=== PATIENT | female | born 1950 | race Caucasian/White ===

== ENCOUNTER 2023-03-18 07:50 | Inpatient (IN) | payer MEDICARE ==
[2023-03-18] VITALS (8 sets, daily range): BP systolic 90–122; BP diastolic 52–75
[~2023-03-18] VITALS: Ht 162.6 cm; Wt 41.0 kg
[~2023-03-18 07:50] MED LIST: AMLODIPINE BESY10 MG PO; ATIVAN1 MG PO; BIOFLEX TABLET1 EACH PO; CRESTOR40 MG NG; DEXAMETHASONE4 MG PO; ONDANSETRON ODT8 MG PO; PROAIR HFA8.5 GM INH; ZOVIRAX400 MG PO
[2023-03-18] MEDS ORDERED: HYDROCODON-ACE1 EAC8 PO (07:58)
[2023-03-18] MEDS ORDERED: PANTOPRAZOLE SO40 MG PO (07:58)
[2023-03-18] MEDS ORDERED: CLOPIDOGREL75 MG PO (07:58)
[2023-03-18] MEDS ORDERED: METOPROLOL SUCC25 MG PO (07:58)
[2023-03-18] MEDS ORDERED: ATORVASTATIN CA80 MG (07:59)
[2023-03-18] MEDS ORDERED: ISOSORBIDE MONO30 MG PO (07:59)
[2023-03-18 08:09] LABS: BASOPHILS 0.5 % (0-2); EOSINOPHILS 1.9 % (0-6); HEMATOCRIT 28.4 % (35.0-50.0); HEMOGLOBIN 9.7 g/dL (12.0-18.0); LYMPHOCYTES 9.9 % (24-44); MCH 26.9 (27-36); MCHC 34.1 g/dl (30-36); MCV 78.7 fl (81-99); MONOCYTES 6.9 % (0-12); NEUTROPHILS 80.8 % (39-80); PLATELET COUNT 301 K/uL (140-440); RBC 3.61 M/ul (4.3-5.7); RDW 19.8 (10.5-15.0)
[2023-03-18 08:26] LABS: ALBUMIN 2.2 g/dL (3.4-5.0); ALBUMIN/GLOBULIN RATIO 0.71 (1.1-2.4); ANION GAP 12.8 (7-21); BILIRUBIN, TOTAL 0.7 ng/dL (0.2-1.0); BUN/CREATININE RATIO 23.52 (6.0-28.6); CALCIUM 9.2 mg/dL (8.5-10.1); CREATININE, SERUM 0.68 mg/dL (0.55-1.02); MAGNESIUM 1.6 mg/dL (1.8-2.4); POTASSIUM 3.8 mmol/L (3.5-5.1); PROTEIN, TOTAL 5.3 g/dL (6.4-8.2)
[2023-03-18 09:05] LABS: INR 1.09 (0.80-1.30); PARTIAL THROMBOPLASTIN TIME 27.9 Sec (22.9-41.3); PROTIME 13.4 Sec (11.2-14.2)
[2023-03-18] MEDS ORDERED: LIPITOR80 MG PO (12:14)
--- NOTE | 2023-03-18 12:30 | NUR ---
PATIENT ARRIVED VIA STRETCHER WITH ER STAFF AND HER . PATIENT STOOD AND TRANSFERED TO [facility] WITH NO ISSUES. SKIN ASSESSMENT DONE AT THIS TIME WITH ER STAFF. PATIENT NOTED TO HAVE GENERALIZED BRUISING AND A REDDEND COCCYX WITH A SMALL SCAB PRESENT. PATIENT REPORTS SHE HAS HAD WOUNDS ON HER COCCYX IN THE PAST. PATIENT REPORTS MINIMAL APPETITE RECENTLY. PATIENT ALERT AND ORIENTED AND ABLE TO ANSWER ALL QUESTIOS. PATIENT DENIES ANY CHEST/BACK/ABD PAIN. PATIENT REPORT SOME "REFLUX PAIN IN CHEST 3 DAYS PRIOR WITH NO ACID TASTE IN HER MOUTH FROM THE INCIDENT". PATIENTS TROPONIN IS NOTED TO BE ELEVATED AND PATIENT ON A HEPARIN GTT UPON ARRIVAL. VERIFIED GTT WITH ERASTO MELVIN. PATIENT DENIES ANY OTHER NEEDS AT THIS TIME.
[2023-03-18] MEDS ORDERED: MIRTAZAPINE15 MG PO (12:35)
[2023-03-18] MEDS ORDERED: STOOL SOFTENER1 EACH PO (12:36)
[2023-03-18] MEDS ORDERED: BAYER CHEWABLE81 MG PO (14:16)
[2023-03-18] MEDS ORDERED: PROLIA60 MG/1 ML SUB-Q (14:17)
--- NOTE | 2023-03-18 14:17 | NUR ---
MED REC COMPLETE
--- NOTE | 2023-03-18 15:23 | NUR ---
PATIENT RESTING IN BED VISITING ON THE PHONE. PATIENTS LEFT FOR THE DAY BUT WILL BE BACK TOMORROW. PATIENT DENIES ANY NEEDS AT THIS TIME. LABS PLACED FOR PTT.
--- NOTE | 2023-03-18 16:00 | NUR ---
TAR PROCESSING TECHNICIAN AND AT THE BEDSIDE TO COMPLETE IMAGING.
--- NOTE | 2023-03-18 16:30 | NUR ---
REVIEWED HEPARIN BOLUS WITH ERASTO MELVIN AND STAN PHARMACIST. STAFFS WRITTEN PROTOCOL CALLS FOR NSTEMI PRN BOLUS TO BE DOSED WITH USING DOSING BODY WEIGHT. BOLUS WITH DOSING BODY WEIGHT IS 2500UNITS. 2 RN VERIFIED.
--- NOTE | 2023-03-18 17:15 | NUR ---
PATIENTS CURRENTLY AT THE BEDSIDE. DISCUSSED PLAN OF CARE WITH PATIENT ABOUT HER INCREASED HEART RATE. SEE EMAR FOR NEW MEDICATIONS. PATIENT SITTING UP EATING DINNER AT THIS TIME. PROVIDED PATIENT WITH ENSURE DRINK. NO OTHER NEEDS AT THIS TIME.
--- NOTE | 2023-03-18 19:40 | NUR ---
BEDSIDE, TALKED WITH PATIENT AND DISCUSSED HEPARIN DRIP INFUSION, DOSING PROTOCOL WITH SUNDEEP Vasquez RN DAYSHIFT.
--- NOTE | 2023-03-18 20:13 | NUR ---
AT NURSES STATION GAVE ORDER TO ADJUST DIGOXIN DOSING, SEE NEW ORDERS
--- NOTE | 2023-03-18 20:30 | NUR ---
PATIENT UP TO BATHROOM VOIDED 250ML URINE. SHE TOLERATED ACTIVITY WELL, SHE REPORTS NO PAIN, NO ACID REFLUX HEARTBURN, NO NAUSEA. ASSESSMENT COMPLETE.
--- NOTE | 2023-03-18 22:20 | NUR ---
ROUNDING IN CCU FOR UPDATES, HAVE PRINTED OUT CT REPORTS FROM LAST NOVEMBER, THIS RN NOTED PULSATING IN PATIENT ABDOMEN ON ASSESSMENT. 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 SAID IF PATIENT REPORTS ANY ABDOMEN PAIN THEN PLAN FOR CT ORDERS TO FOLLOW.
--- NOTE | 2023-03-18 23:34 | NUR ---
PATIENT RESTING IN BED, RELAXED POSITION IN BED, PATIENT ON FULL TELEMETRY WITH V/S AND OXIMETRY V/S STABLE WITH CONTINUED TACHYCARDIA AVERAGE 100-115/MIN.
[2023-03-19] VITALS (9 sets, daily range): BP systolic 110–136; BP diastolic 59–76
--- NOTE | 2023-03-19 01:17 | NUR ---
ROUNDING ON PATIENT, SHE HAS TTOK OFF HER OXIMETRY SENSOR, SHE SAID "I WANTED TO CHANGE FINGERS" THIS RN SAID "THAT JUST FINE, MOST ANY FINGER WILL WORK" SHE VERABLIZED NO NEEDS, THEN CALLED NURSES STATION TO ASK FOR LINE ASSISTANCE TO BATHROOM, SHE THEN VOIDED 250ML URINE. SHE AMBULATED BACK TO BED, NOTED THAT HEART RATE DURING ACTIVITY WAS HIGH 141/MIN, THEN DECREASED QUICKLY WITH REST. PATIENT PROVIDED FRESH ICE WATER, SHE NOW REPORTS NO FURTHER NEEDS.
--- NOTE | 2023-03-19 03:12 | NUR ---
HEART RATE CONTINUES TO FLUXUATE BETWEEN 110-135 BEATS PER MINUTE, B/P HAS BEEN STABLE, ADMINISTERED LOPRESSOR PRN 5MG IV. PATIENT THEN UP TO BATHROOM WITH ACTIVITY HR INCREASED TO 120/MIN, SHE REPORTS NO DIZZINESS OT LIGHT HEADEDNESS, TOLERATED ACTIVITY WELL WITH LINE MANAGEMENT ASSISTANCE. PATIENT 93% OXYGEN ON ROOM AIR WITH ACTIVITY, HAS REQUIRED 2L INTERMITTEN WHILE SLEEPING SHE HAS DESATURATED TO 87% ON ROOM AIR. SHE IS NOTED TO HAVE MOIST COUGH, SHE REPORTS NOT ABLE TO PRODUCE SPUTUM, SHE REPROTS IT IS LIKE PHLEM IN HER THROAT, LUNGS ARE CLEAR.
[2023-03-19 05:35] LABS: HEMATOCRIT 25.8 % (35.0-50.0); HEMOGLOBIN 8.7 g/dL (12.0-18.0); MCH 26.9 (27-36); MCHC 33.7 g/dl (30-36); MCV 79.7 fl (81-99); PLATELET COUNT 236 K/uL (140-440); RBC 3.24 M/ul (4.3-5.7); RDW 19.8 (10.5-15.0)
[2023-03-19 05:49] LABS: ALBUMIN 1.9 g/dL (3.4-5.0); ALBUMIN/GLOBULIN RATIO 0.66 (1.1-2.4); ANION GAP 10.8 (7-21); BILIRUBIN, TOTAL 0.5 ng/dL (0.2-1.0); BUN/CREATININE RATIO 22.53 (6.0-28.6); CALCIUM 8.8 mg/dL (8.5-10.1); CREATININE, SERUM 0.71 mg/dL (0.55-1.02); MAGNESIUM 1.7 mg/dL (1.8-2.4); PHOSPHORUS, INORGANIC 3.5 mg/dL (2.5-4.9); POTASSIUM 3.8 mmol/L (3.5-5.1); PROTEIN, TOTAL 4.8 g/dL (6.4-8.2)
[2023-03-19 06:05] LABS: LYMPHOCYTES, MANUAL DIFF 17; MONOCYTES, MANUAL DIFF 4; NEUTROPHILS, MANUAL DIFF 79
--- NOTE | 2023-03-19 06:21 | NUR ---
ROUNDING TO TITRATE HEPARIN DRIP, AND GIVE BOLUS HEPARIN PER PROTOCOL/ORDERS. PATIENT ALERT, ASKED TO GET OUT OF BED TO RECLINER, PATIENT UP TO BATHROOM FIRST VOIDED 300ML URINE, THEN TO RECLINER, PILLOWS PLACED FOR COMFORT IN RECLINER, WARM BLANKETS AND ICE WATER PROVIDED, THIS RN ASKED, "IS THERE ANYTHING ELSE I CAN GET FOR YOU?" PATIENT SAID, "NO, I CANT THINK OF ANYTHING" PATIENT PROVIDED REMOTE FOR TV, AND CALL LIGHT IN REACH.
--- NOTE | 2023-03-19 06:42 | NUR ---
AT NURSES STATION FOR UPDATES, DISCUSSED ALL LABS THIS AM, NEW ORDERS GIVEN, SEE EMAR.
--- NOTE | 2023-03-19 06:44 | NUR ---
DR.BELL HADLEY IN PATIENT ROOM.
--- NOTE | 2023-03-19 07:25 | EKG ---
[facility] [address] [facility] [place] [address] Signed Atrial fibrillation with rapid ventricular response Rightward axis Biventricular hypertrophy Marked ST abnormality, possible anterolateral subendocardial injury Abnormal ECG When compared with ECG of 17-MAR-2023 15:40, ST now depressed in Anterior leads T wave inversion now evident in Anterolateral leads Confirmed by ROSENDO ROBERTS MD ([id number]) on 03/19/2023 7:25:24 AM Electronically Signed By: ROSENDO ROBERTS 03/19/23 0725 PATIENT NAME: KIRAN SANTANA Electrocardiogram DATE OF : 48 PHYSICIAN: ROSENDO ROBERTS REPORT #: [id number] REPORT IS CONFIDENTIAL AND NOT TO BE RELEASED WITHOUT AUTHORIZATION
--- NOTE | 2023-03-19 07:30 | NUR ---
REPORT RECIEVED FROM STATE HISTORICAL SOCIETY DIRECTOR RN. PATIENT REMAINS ON HEPARIN GTT AT THIS TIME. PER UPDATES FROM MD THIS AM PATIENT WILL TRANSITION TO ORAL BLOOD THINNER TODAY.
--- NOTE | 2023-03-19 10:00 | NUR ---
PATIENT PO MEDICATIONS ADMINISTERED. PATIENT TOLERATED WELL WITH NO ISSUES. PATIENT ATE 50% OF HER MEAL AND DRINKING AN ENSURE. PATIENT ALERT AND ORIENTED. PATIENT TRANSITIONED TO NICOLAS MEDICATIONS AND HEPARIN GTT DCD. PATIENT TRANSITIONED TO A MEDSURG PATIENT, BUT WILL STAY IN ROOM 126 AT THIS TIME. DISCUSSED PLAN OF CARE WITH PATIENT AND SHE IS AGREEABLE. PATIENT DENIES CHEST, PAIN, ABD PAIN OR BACK PAIN. PATIENT BOWEL TONES ACTIVE. BREATH SOUNDS CLEAR. PATIENT UP TO THE BATHROOM INDEPENDENTLY. PATIENTS ARRIVED. PATIENT AM CARES PROVIDED.
--- NOTE | 2023-03-19 12:15 | NUR ---
PATIENT UP TO THE RESTROOM WITH HER AT HER SIDE. PATIENT IS INDEPENDENT. PATIENT TOLERATED WELL WITH NO ISSUES. PATIENT REMAINS ON TELE MONITOR. PATIENT ASSESSMENT REMAINS UNCHANED. LUNCH PROVIDED AND DINNER ORDERED FOR TONIGHT. PATIENT VERY THANKFUL FOR CARES. PATIENTS HR BETTER CONTROLLED THIS AFTERNOON WITH A.FIB RATE 80-100. PATIENT DENIES PALPITATIONS OR SOB.
--- NOTE | 2023-03-19 14:13 | NUR ---
PATIENT RESITNG IN BED ON THE MONITOR. PATIENTS HR WELL CONTROLLED A.FIB IN THE 80'S. PATIENTS AT THE BEDSIDE RESTING IN THE CHAIR. CALL LIGHT IN REACH.
--- NOTE | 2023-03-19 16:30 | NUR ---
UPDATED PATIENT SHE WILL BE TRANSFERING TO THE MEDICAL UNIT AFTER DINNER. PATIENT AGREEABLETO PLAN OF CARE. PATIENTS AT THE [facility].
--- NOTE | 2023-03-19 17:55 | NUR ---
PT ARRIVES TO ROOM IN BED ACCOMPANIED BY NGOZI CEJA AND NGOZI URBANO ALONG WITH PTs SPOUSE. VITALS COMPLETE. BEDSIDE REPORT RECEIVED FROM NGOZI URBANO. ASSESSMENT COMPLETE. LUNG SOUNDS CLEAR. BOWEL TONES ACTIVE. HEART TONE/RATE IRREGULAR. PT DENIES PAIN AT THIS TIME. PT DENIES ANY NUMBNESS OR TINGLING. PT SITTING UP IN BED. PT DENIES ANY OTHER NEEDS AT THIS TIME. CALL LIGHT IN REACH. IN ROOM DENIES ANY NEEDS.
--- NOTE | 2023-03-19 18:00 | NUR ---
PATIENT ARRIVED TO ROOM 109 WITH THIS RN AND MARCIAL MELVIN. ALL BELONGIGNS SENT WITH PATIENT AND HER OLIVERIO. PATIENT ORIENTED TO NEW ROOM. PATIENT RN CATARINA AT THE BEDSIDE AND GIVEN REPORT. PATIENT HAS TELE [address] FOR MONITORING OVER NIGHT. PATIENT VITALS DONE. PATIENT DENIES ANY OTHER NEEDS AT THIS TIME.
--- NOTE | 2023-03-19 19:20 | NUR ---
REPORT RECIEVED FROM CATARINA MELVIN. pt RESTING IN THE BED. pt DENIES ANY NEEDS AT THIS TIME. BOARD UPDATED. CALL LIGHT WITHIN REACH.
--- NOTE | 2023-03-19 22:00 | NUR ---
ASSESSMENT AND VITAL SIGNS DONE. LUNGS SOUND CLEAR. A&O X4. HR 110. pt DENIES PAIN AT THIS TIME. pt DENIES ANY NEEDS AT THIS TIME. SCHEDULED MEDS ADMINISTERED, SEE MAR. CALL LIGHT WITHIN REACH.
--- NOTE | 2023-03-19 22:15 | NUR ---
new tele battery in place, pt awoke easily to voice. denies needs or concerns. call light in reach.
--- NOTE | 2023-03-20 00:10 | NUR ---
pt RESTING IN THE BED. pt O2 SPOT CHECKED AT 91% ON RA. CALL LIGHT WITHIN REACH.
--- NOTE | 2023-03-20 01:22 | NUR ---
VITAL SIGNS AND I&O'S DONE. pt RESTING IN THE BED. HR 87. WATER REFRESHED. CALL LIGHT WITHIN REACH. pt DENIES ANY OTHER NEEDS AT THIS TIME.
[2023-03-20 01:25] VITALS: BP 129/54
--- NOTE | 2023-03-20 03:58 | NUR ---
pt SITTING UP IN THE BED. pt REQUESTED A CUP OF COFFEE. pt DENIES ANY OTHER NEEDS AT THIS TIME. ASSESSMENT DONE. CALL LIGHT WITHIN REACH.
[2023-03-20 04:41] VITALS: BP 118/55
[2023-03-20 05:24] LABS: HEMATOCRIT 27.2 % (35.0-50.0); HEMOGLOBIN 9.2 g/dL (12.0-18.0); MCH 26.8 (27-36); MCV 78.8 fl (81-99); PLATELET COUNT 242 K/uL (140-440); RBC 3.46 M/ul (4.3-5.7); RDW 19.7 (10.5-15.0)
[2023-03-20 05:38] LABS: ANION GAP 11.3 (7-21); BUN/CREATININE RATIO 18.64 (6.0-28.6); CALCIUM 8.8 mg/dL (8.5-10.1); CREATININE, SERUM 0.59 mg/dL (0.55-1.02); POTASSIUM 3.3 mmol/L (3.5-5.1)
[2023-03-20 05:48] LABS: BASOPHILS, MANUAL DIFF 1; LYMPHOCYTES, MANUAL DIFF 18; MONOCYTES, MANUAL DIFF 5; NEUTROPHILS, MANUAL DIFF 76
--- NOTE | 2023-03-20 06:13 | NUR ---
pt RESTING IN THE BED WITH EYES CLOSED. HR 84. RR EVEN AND UNLABORED. CALL LIGHT WITHIN REACH.
--- NOTE | 2023-03-20 06:49 | NUR ---
MD ROBERTS TO THE FLOOR. DR. ROBERTS GAVE VERBAL ORDER FOR 40 MEQ OF PO K+. REPEAT BACK METHOD FOR VERIFACATION DONE.
[2023-03-20] MEDS ORDERED: DIGOX250 MCG PO (07:58)
[2023-03-20] MEDS ORDERED: ELIQUIS5 MG PO (07:58)
[2023-03-20] MEDS ORDERED: METOPROLOL TART25 MG PO (07:59)
--- NOTE | 2023-03-20 08:01 | NUR ---
PT SITTING UP IN BED PLAYING ON PHONE WHEN ENTERING ROOM. PT EXCITED SHE MAY GET TO GO HOME TODAY. CALL LIGHT WITHIN REACH, NO NEEDS AT THIS TIME. ALL PT CARE NEEDS MET.
[2023-03-20 08:12] VITALS: BP 129/54
[2023-03-20 08:17] VITALS: BP 129/54
[2023-03-20 09:33] VITALS: BP 128/45
== END 2023-03-20 09:50 | disposition home or self-care (01) | DRG 281 ==
LOC: ED 07:50 → CCU 11:24 → MS 03-19 17:44
PROVIDERS: Emergency Medicine; Internal Medicine; ADMIT Family Medicine; ATTEND Family Medicine
DX: I21.4 Non-ST elevation (NSTEMI) myocardial infarction (principal); C85.90 Non-Hodgkin lymphoma, unspecified, unspecified site; I48.91 Unspecified atrial fibrillation; E83.42 Hypomagnesemia; I10 Essential (primary) hypertension; F17.210 Nicotine dependence, cigarettes, uncomplicated; Z98.51 Tubal ligation status; Z88.8 Allergy status to other drugs, medicaments and biological substances; Z79.899 Other long term (current) drug therapy; Z79.891 Long term (current) use of opiate analgesic; Z79.51 Long term (current) use of inhaled steroids
CPT/HCPCS: 36415; 71045; 80048; 80053; 83735; 84100; 84484; 85025; 85610; 85730; 93005; 93010; 93306; 94760; 96365; 96375; 99285-25; A9270; J1160; J1644; J3475